=== PATIENT | female | born 1955 | race Caucasian/White ===

== ENCOUNTER → 2018-06-22 12:43 | Day surgery (SDC) | payer BC ==
[~2018-06-22 12:43] MED LIST: Acetaminophen TAB* 325 MG PO PRN; Buffered Lidocaine 0.9% SYRIN* 5 ML/SYR SYRINGE INTRADERM ONE; Bupivacaine 0.25% SDV PF* 10 ML VIAL INJ ONE; Bupivacaine 0.5% SDV PF* 30ML VIAL ONE; Ibuprofen TAB* 600 MG PO PRN; Midazolam* 1 MG/ML 2 ML VIAL (2 MG) ONE; Naloxone* 0.4 MG/ML 1 ML VIAL IV PRN; Ondansetron INJ* 2 MG/ML VIAL IV PRN; Propofol* 10 MG/ML 20 ML BTL IV PUSH ONE; ceFAZolin 2 GM in NS PREMIX(*) 2 GM/100 ML BAG IVPB ONE; fentaNYL* 50 MCG/ML 2 ML VIAL (100 MCG VIAL) IV PRN; fentaNYL* 50 MCG/ML 2 ML VIAL (100 MCG VIAL) ONE
[2018-06-22 16:08] VITALS: BP 139/72
== END | disposition home or self-care (01) ==
LOC: OR 12:43
PROVIDERS: ATTEND Plastic Surgery
DX: L72.0 Epidermal cyst (principal); E03.9 Hypothyroidism, unspecified; M19.90 Unspecified osteoarthritis, unspecified site
CPT/HCPCS: 88304; J0690; J2250; J2704; J3010; J3490

== ENCOUNTER 2024-05-12 06:27 | Observation (INO) ==
[~2024-05-12 06:27] MED LIST changes: -Acetaminophen TAB* 325 MG PO PRN; -Buffered Lidocaine 0.9% SYRIN* 5 ML/SYR SYRINGE INTRADERM ONE; -Bupivacaine 0.25% SDV PF* 10 ML VIAL INJ ONE; -Bupivacaine 0.5% SDV PF* 30ML VIAL ONE; -Ibuprofen TAB* 600 MG PO PRN; -Midazolam* 1 MG/ML 2 ML VIAL (2 MG) ONE; +NS 0.45% 1000 ml BAG 1,000 ML IV SCH; +Naloxone 0.4 mg VIAL 0.4 mg/ml 1 ml VIAL IV PRN; -Naloxone* 0.4 MG/ML 1 ML VIAL IV PRN; +Ondansetron 4 mg VIAL 2 MG/ML 2 ml VIAL IV PRN; -Ondansetron INJ* 2 MG/ML VIAL IV PRN; -Propofol* 10 MG/ML 20 ML BTL IV PUSH ONE; -ceFAZolin 2 GM in NS PREMIX(*) 2 GM/100 ML BAG IVPB ONE; -fentaNYL* 50 MCG/ML 2 ML VIAL (100 MCG VIAL) IV PRN; -fentaNYL* 50 MCG/ML 2 ML VIAL (100 MCG VIAL) ONE
[2024-05-12] MEDS ORDERED: Tranexamic Acid 1 GM/100ML BAG 2,000 MG/200 ML BAG IV ONE (07:03)
[2024-05-12] MEDS ORDERED: ceFAZolin 2 GM in NS PREMIX 2 GM/100 ML BAG IVPB ONE (07:03)
[2024-05-12] MEDS: Lactated Ringers 1000 ml BAG 1,000 ML IV SCH ×3 (07:22→14:43)
[2024-05-12 07:44] LABS: Rapid COVID-19 Molecular Undetected (Undetected)
[2024-05-12] MEDS ORDERED: Ondansetron 4 mg VIAL 2 MG/ML 2 ml VIAL IV PRN ×2 (08:56→12:19)
[2024-05-12] MEDS ORDERED: Metoclopramide 5 MG/ML VIAL (10 mg) IV PRN (08:56)
[2024-05-12] MEDS ORDERED: fentaNYL 100 mcg/2 ml 50 MCG/ML VIAL IV PRN (08:56)
[2024-05-12] MEDS ORDERED: NS 0.45% 1000 ml BAG 1,000 ML IV SCH (09:00)
[2024-05-12] MEDS ORDERED: ROPIVACAINE 5 MG/ML 30 ML BTL (0.5%) ONE (09:03)
[2024-05-12] MEDS ORDERED: Midazolam 2 mg/2 ml VIAL 1 mg/ml 2 ml VIAL (2 mg) ONE (09:16)
[2024-05-12] MEDS ORDERED: fentaNYL 100 mcg/2 ml 50 MCG/ML VIAL ONE ×4 (09:16→13:31)
[2024-05-12] MEDS ORDERED: Propofol 10 MG/ML 20 ML BTL ONE ×2 (10:07→11:18)
[2024-05-12] MEDS ORDERED: Dexamethasone IV 4 MG/ML VIAL 1 ml VIAL ONE (10:30)
[2024-05-12] MEDS ORDERED: Ondansetron 4 mg VIAL 2 MG/ML 2 ml VIAL ONE (10:30)
[2024-05-12] MEDS: Buffered Lidocaine 1% SYRIN 1 ml INTRADERM ONE ×2 (11:01)
[2024-05-12] MEDS: Scopolamine 1 mg/72hr PATCH TRANSDERM ONE ×2 (11:01→11:59)
[2024-05-12] MEDS: Acetaminophen IV 1 GM/100ML 1,000 MG/100 ML BAG IV ONE (11:58)
[2024-05-12] MEDS ORDERED: Lactulose 30 ml UDC PO PRN (12:19)
[2024-05-12] MEDS ORDERED: Morphine 2 MG/ML SYRINGE IV PRN (12:19)
[2024-05-12] MEDS ORDERED: Magnesium Hydroxide LIQ 30 ML UDC PO PRN (12:19)
[2024-05-12] MEDS ORDERED: Calcium Carb (TUMS) 500 mg CHEW TAB PO PRN (12:19)
[2024-05-12] MEDS ORDERED: Ondansetron ODT 4 mg TAB 4 MG TAB PO PRN (12:19)
[2024-05-12] MEDS ORDERED: Metoclopramide 5 MG/ML VIAL (10 mg) ONE (12:22)
[2024-05-12] MEDS: Metoclopramide 5 MG/ML VIAL (10 mg) IV PRN (12:25)
[2024-05-12] MEDS: fentaNYL 100 mcg/2 ml 50 MCG/ML VIAL IV PRN (12:26)
[2024-05-12] MEDS: ceFAZolin 2 GM in NS PREMIX 2 GM/100 ML BAG IVPB SCH (17:30)
[2024-05-12] MEDS: Magnesium Hydroxide LIQ 30 ML UDC PO SCH (20:56)
[2024-05-13] MEDS: Cholecalciferol (VIT D3) 1,000 unit TAB PO SCH (08:05)
[2024-05-13] MEDS: Vitamin THERAPEUTIC TAB PO SCH (08:05)
[2024-05-13 08:10] LABS: Hematocrit 29.4 % (35-45); Hemoglobin 9.9 g/dL (11.5-14.3); Mean Platelet Volume 7.6 fL (7.5-11.2); Platelet Count 247 10^3/uL (150-450)
[2024-05-13 08:34] LABS: Calcium 8.9 mg/dL (8.6-10.3); Creatinine, Serum 0.74 mg/dL (0.51-0.95); Potassium 4.1 mmol/L (3.5-5.0); eGFR CKD-EPI 87.5 (>60)
[2024-05-13 10:57] VITALS: BP 108/46
== END 2024-05-13 12:45 | disposition home or self-care (01) ==
LOC: OR 06:27 → SSU 06:27
PROVIDERS: ADMIT Orthopaedic Surgery Adult Reconstructive Orthopaedic Surgery; ATTEND Orthopaedic Surgery Adult Reconstructive Orthopaedic Surgery